=== PATIENT | male | born 1950 | race Asian ===

== ENCOUNTER → 2017-04-25 | Outpatient (CLI) | payer MEDICAID | END | disposition home or self-care (01) | LOC: RADPV 09:46 | PROVIDERS: ATTEND Hospitalist | DX: E11.29 Type 2 diabetes mellitus with other diabetic kidney complication (principal); N28.1 Cyst of kidney, acquired; N40.0 Benign prostatic hyperplasia without lower urinary tract symptoms | CPT/HCPCS: 76770 ==